=== PATIENT | male | born 1975 | race Caucasian/White ===

== ENCOUNTER 2017-01-12 11:41 | Emergency (ER) | payer SELFPAY ==
[~2017-01-12] VITALS: Ht 188 cm; Wt 81.7 kg
[2017-01-12] MEDS ORDERED: ALEVE220 M3 PO (12:02)
[2017-01-12] MEDS ORDERED: CYCLOBENZAPRINE5 M1 PO (14:03)
[2017-01-12] MEDS ORDERED: PREDNISONE20 M1 PO (14:03)
== END 2017-01-12 14:30 ==
LOC: EDMED 11:41
DX: M54.6 Pain in thoracic spine (principal); M54.5 Low back pain; Z91.018 Allergy to other foods; Z91.09 Other allergy status, other than to drugs and biological substances